=== PATIENT | male | born 1940 | race Caucasian/White ===

== ENCOUNTER 2016-06-15 07:27 | Outpatient (CLI) | payer MEDICARE ==
[2016-06-15 08:40] LABS: ALT (SGPT) 28 U/L (0-55); AST (SGOT) 42 U/L (5-34); Albumin 3.5 g/dL (3.4-4.8); Alkaline Phosphatase 117 U/L (40-150); Anion Gap 10 mmol/L (10-20); BUN (Urea Nitrogen) 13 mg/dL (8.4-25.7); Bilirubin, Total 2.7 mg/dL (0.2-1.2); Calc. Creatinine Clearance 0 mL/min (70-130); Calcium 9.5 mg/dL (7.8-10.44); Carbon Dioxide 28 mmol/L (23-31); Chloride 107 mmol/L (98-107); Cholesterol 163 mg/dL (< 200 Desired); Estimated GFR-MDRD Greater than 90; Globulin 2.7 g/dL (2.4-3.5); Glucose 105 mg/dL (83-110); HDL Cholesterol 41 mg/dL (>60 Neg Risk); LDL Cholesterol, Calculated 104 mg/dL; Potassium 4.1 mmol/L (3.5-5.1); Protein, Total 6.2 g/dL (5.8-8.1); Sodium 141 mmol/L (136-145); Triglycerides 90 mg/dL (Less than 150)
== END 2016-06-15 07:28 | disposition home or self-care (01) ==
LOC: MADLAB 07:27
PROVIDERS: ATTEND Internal Medicine
DX: I10 Essential (primary) hypertension (principal); E78.00 Pure hypercholesterolemia, unspecified; R53.83 Other fatigue
CPT/HCPCS: 36415; 80053; 80061

== ENCOUNTER 2016-11-25 07:48 | Outpatient (CLI) | payer MEDICARE ==
[2016-11-25 09:09] LABS: ALT (SGPT) 44 U/L (8-55); AST (SGOT) 54 U/L (5-34); Albumin 3.5 g/dL (3.4-4.8); Alkaline Phosphatase 181 U/L (40-150); Anion Gap 13 mmol/L (10-20); BUN (Urea Nitrogen) 11 mg/dL (8.4-25.7); Bilirubin, Total 2.1 mg/dL (0.2-1.2); CK (CPK) 151 U/L (30-200); Calc. Creatinine Clearance 0 mL/min (70-130); Calcium 9.6 mg/dL (7.8-10.44); Carbon Dioxide 24 mmol/L (23-31); Chloride 106 mmol/L (98-107); Cholesterol 133 mg/dl (< 200 Desired); Estimated GFR-MDRD Greater than 90; Globulin 3.4 g/dL (2.4-3.5); Glucose 107 mg/dL (83-110); HDL Cholesterol 45 mg/dL (>60 Neg Risk); LDL Cholesterol, Calculated 73 mg/dL; Potassium 4.1 mmol/L (3.5-5.1); Protein, Total 6.9 g/dL (5.8-8.1); Sodium 139 mmol/L (136-145); Triglycerides 76 mg/dL (Less than 150)
== END 2016-11-25 07:49 | disposition home or self-care (01) ==
LOC: MADLAB 07:48
PROVIDERS: ATTEND Internal Medicine
DX: E78.00 Pure hypercholesterolemia, unspecified (principal); M79.7 Fibromyalgia; Z79.899 Other long term (current) drug therapy
CPT/HCPCS: 36415; 80053; 80061; 82550

== ENCOUNTER 2020-06-14 14:12 | Emergency (ER) | payer MEDICARE ==
--- NOTE | 2020-06-14 16:10 | RAD ---
RIGHT HIP TWO VIEWS: History: Hip pain FINDINGS: The bones are demineralized. Mild arthritic changes are seen. No fracture or dislocation. IMPRESSION: No evidence of fracture. POS: OFF
[2020-06-14] MEDS ORDERED: HYDROcodone/Acetaminophen 10/325 mg Tablet ONE (16:42)
--- NOTE | 2020-06-14 16:49 | CT ---
CT OF CHEST PERFORMED WITHOUT CONTRAST ENHANCEMENT: History: Fall with rib pain. FINDINGS: Lungs are clear of any infiltrative process. No pneumothorax or pleural effusion. No pulmonary contus ion is identified. No acute rib fractures are seen. The thoracic aorta is tortuous. No mediastinal adenopathy is appreciated. Visualized liver parenchyma shows no focal findings. Nonobstructing renal calculi are seen. Arthritic changes of the spine without evidence of compression fracture. IMPRESSION: No evidence of any acute rib fractures or pneumothorax. No acute findings of the chest. POS: OFF
--- NOTE | 2020-06-14 16:51 | RAD ---
RIGHT KNEE FOUR VIEWS: History: Knee pain FINDINGS: The bones are demineralized. There are arthritic changes of the knee. There is no fracture or joint e ffusion. IMPRESSION: Moderate arthritic change of the knee. No acute injury. POS: OFF
--- NOTE | 2020-06-14 16:53 | RAD ---
RIGHT SHOULDER THREE VIEWS: History: Shoulder pain FINDINGS: Bones are demineralized. There are arthritic changes of the glenohumeral and AC joint. There are no s igns of fracture or dislocation. IMPRESSION: No acute injury. POS: OFF
== END 2020-06-14 16:58 | disposition home or self-care (01) ==
LOC: MADERS 14:12
DX: S76.011A Strain of muscle, fascia and tendon of right hip, initial encounter (principal); S46.911A Strain of unspecified muscle, fascia and tendon at shoulder and upper arm level, right arm, initial encounter; S20.212A Contusion of left front wall of thorax, initial encounter; I48.91 Unspecified atrial fibrillation; I10 Essential (primary) hypertension; E78.5 Hyperlipidemia, unspecified; Z79.899 Other long term (current) drug therapy; W18.30XA Fall on same level, unspecified, initial encounter
CPT/HCPCS: 71250

== ENCOUNTER 2021-01-08 11:46 | Emergency (ER) | payer MEDICARE ==
[~2021-01-08 11:46] MED LIST: Enoxaparin Sodium 80 MG/0.8 ML SYRINGE ONE; Morphine 4 MG/ML VIAL ONE; Nitroglycerin 2% Ointment 1 INCH/1 GM Packet ONE
[2021-01-08 17:23] LABS: Hemoglobin 14.8 g/dL (14.0-18.0); Red Blood Cell (RBC) Count 4.32 mill/uL (4.70-6.10); White Blood Cell (WBC) Count 4.3 thou/uL (4.8-10.8)
[2021-01-08 17:24] LABS: #Basophils 0.1 thou/uL (0.0-0.2); #Eosinphils 0.1 thou/uL (0.0-0.7); #Monocytes 0.6 thou/uL (0.11-0.59); %Eosinophils 0.9 % (0.0-10.0); %Lymphocytes 32.2 % (21.0-51.0); %Monocytes 10.6 % (0.0-10.0); %Neutrophils 55.3 % (42.0-75.0); MDiff Complete? YES; Mean Corpuscular HGB CONC 32.5 g/dL (32.0-36.0); Mean Corpuscular Hemoglobin 34.1 pg (27.0-31.0); Mean Platelet Volume 7.7 fL (7.4-10.4); Platelet Count 118 thou/uL (130-400); RBC Distribution Width 13.1 % (11.5-14.5)
[2021-01-08 17:25] LABS: Anisocytosis SLIGHT = 6-15 cells (100X) (0-5/hpf); Macrocytosis SLIGHT = 6-15 cells (100X) (0-5/hpf); Platelet Morphology Comment Appears Decreased
[2021-01-08 17:26] LABS: BUN (Urea Nitrogen) 12 mg/dL (8.4-25.7); Chloride 105 mmol/L (98-107); Potassium 3.9 mmol/L (3.5-5.1); Sodium 139 mmol/L (136-145)
[2021-01-08 17:27] LABS: Anion Gap 12 mmol/L (10-20); Bilirubin, Total 1.9 mg/dL (0.2-1.2); Calc. Creatinine Clearance 0 mL/min (70-130); Calcium 9.7 mg/dL (7.8-10.44); Carbon Dioxide 26 mmol/L (23-31); Glucose 111 mg/dL (83-110)
[2021-01-08 17:28] LABS: ALT (SGPT) 32 U/L (8-55); AST (SGOT) 37 U/L (5-34); Alkaline Phosphatase 192 U/L (40-110); CK (CPK) 236 U/L (30-200); Globulin 2.7 g/dL (2.4-3.5); Lipase 45 U/L (8-78); Protein, Total 5.7 g/dL (5.8-8.1)
[2021-01-08 17:29] LABS: SARS-CoV-2 NAA Rapid Test Not Detected (NotDetected)
[2021-01-08 22:44] LABS: Troponin I 0.029 ng/mL (< 0.028)
== END 2021-01-09 05:28 | disposition short-term general hospital (02) ==
LOC: MADER/OP 11:46 → MADERS 01-09 05:28
DX: I48.91 Unspecified atrial fibrillation (principal); I10 Essential (primary) hypertension; E78.5 Hyperlipidemia, unspecified; Z79.82 Long term (current) use of aspirin; Z79.899 Other long term (current) drug therapy; Z20.822 Contact with and (suspected) exposure to COVID-19
CPT/HCPCS: 71045; 82550; 83690; 83880; 84484 ×2; 96372; 99285; U0002; 80053; 84443; 85025; J1650; J2270

== ENCOUNTER 2021-05-01 07:50 | Emergency (ER) | payer MEDICARE ==
[2021-05-01 08:53] LABS: ALT (SGPT) 24 U/L (8-55); AST (SGOT) 30 U/L (5-34); Albumin 2.8 g/dL (3.4-4.8); Alkaline Phosphatase 166 U/L (40-110); Anion Gap 11 mmol/L (10-20); BUN (Urea Nitrogen) 19 mg/dL (8.4-25.7); Bilirubin, Total 2.7 mg/dL (0.2-1.2); Calc. Creatinine Clearance 0 mL/min (70-130); Carbon Dioxide 29 mmol/L (23-31); Chloride 106 mmol/L (98-107); Globulin 3.3 g/dL (2.4-3.5); Glucose 101 mg/dL (83-110); Magnesium 1.7 mg/dL (1.6-2.6); Potassium 4.4 mmol/L (3.5-5.1); Protein, Total 6.1 g/dL (5.8-8.1); Sodium 142 mmol/L (136-145)
[2021-05-01 08:54] LABS: #Basophils 0.1 thou/uL (0.0-0.2); #Eosinphils 0.1 thou/uL (0.0-0.7); #Monocytes 0.7 thou/uL (0.11-0.59); #Neutrophils 3.9 thou/uL (1.40-6.50); %Basophils 1.4 % (0.0-1.0); %Eosinophils 1.9 % (0.0-10.0); %Lymphocytes 29.6 % (21.0-51.0); %Monocytes 10.6 % (0.0-10.0); %Neutrophils 56.5 % (42.0-75.0); Anisocytosis SLIGHT = 6-15 cells (100X) (0-5/hpf); Hemoglobin 16.2 g/dL (14.0-18.0); Large Platelets SLIGHT; MDiff Complete? YES; Macrocytosis SLIGHT = 6-15 cells (100X) (0-5/hpf); Mean Corpuscular Hemoglobin 34.7 pg (27.0-31.0); Mean Platelet Volume 6.1 fL (7.4-10.4); Platelet Count 109 thou/uL (130-400); Platelet Morphology Comment Appears Decreased; RBC Distribution Width 12.1 % (11.5-14.5); Red Blood Cell (RBC) Count 4.67 mill/uL (4.70-6.10); White Blood Cell (WBC) Count 6.8 thou/uL (4.8-10.8)
== END 2021-05-01 12:43 ==
LOC: MADERS 07:50
DX: R07.89 Other chest pain (principal); N20.0 Calculus of kidney; E80.6 Other disorders of bilirubin metabolism; I48.91 Unspecified atrial fibrillation; I10 Essential (primary) hypertension; E78.5 Hyperlipidemia, unspecified
CPT/HCPCS: 36415; 71045; 74176; 80053; 83735; 83880; 84484; 85025; 93005

== ENCOUNTER 2021-05-05 16:09 | Outpatient (CLI) | payer MEDICARE ==
[2021-05-05 20:12] LABS: ALT (SGPT) 24 U/L (8-55); AST (SGOT) 35 U/L (5-34); Albumin 2.3 g/dL (3.4-4.8); Alkaline Phosphatase 154 U/L (40-110); Anion Gap 12 mmol/L (10-20); BUN (Urea Nitrogen) 18 mg/dL (8.4-25.7); Bilirubin, Total 1.1 mg/dL (0.2-1.2); Calc. Creatinine Clearance 0 mL/min (70-130); Carbon Dioxide 29 mmol/L (23-31); Chloride 102 mmol/L (98-107); Globulin 2.6 g/dL (2.4-3.5); Glucose 104 mg/dL (83-110); Potassium 4.3 mmol/L (3.5-5.1); Protein, Total 4.9 g/dL (5.8-8.1); Sodium 139 mmol/L (136-145)
[2021-05-05 21:52] LABS: #Basophils 0.1 thou/uL (0.0-0.2); #Eosinphils 0.1 thou/uL (0.0-0.7); #Lymphocytes 2.2 thou/uL (1.20-3.40); #Monocytes 0.7 thou/uL (0.11-0.59); #Neutrophils 1.8 thou/uL (1.40-6.50); %Basophils 1.3 % (0.0-1.0); %Eosinophils 2.3 % (0.0-10.0); %Lymphocytes 45.9 % (21.0-51.0); %Monocytes 13.4 % (0.0-10.0); %Neutrophils 37.1 % (42.0-75.0); Burr Cells MODERATE= 6-15 cells (100X) (0-1/hpf); Hemoglobin 14.8 g/dL (14.0-18.0); Mean Corpuscular Volume 106.2 fL (78.0-98.0); Mean Platelet Volume 6.6 fL (7.4-10.4); Platelet Count 94 thou/uL (130-400); Platelet Morphology Comment Appears Decreased; RBC Distribution Width 12.4 % (11.5-14.5); Red Blood Cell (RBC) Count 4.22 mill/uL (4.70-6.10); White Blood Cell (WBC) Count 4.9 thou/uL (4.8-10.8)
== END 2021-05-05 16:10 | disposition home or self-care (01) ==
LOC: MADLAB 16:09
DX: G40.89 Other seizures (principal); I10 Essential (primary) hypertension; I48.20 Chronic atrial fibrillation, unspecified
CPT/HCPCS: 80053; 85025